=== PATIENT | female | born 1985 | race Caucasian/White ===

== ENCOUNTER → 2017-07-04 | Outpatient (CLI) | payer OTHER ==
[~2017-07-04] MED LIST: IBUP600 PO; Norco 5-325 Ta1 EACH PO; PREN-16 PO; SERT25 PO; TRAM50 PO
== END ==
LOC: LAB 16:55
DX: Z11.3 Encounter for screening for infections with a predominantly sexual mode of transmission (principal)
CPT/HCPCS: 87070; 87205

== ENCOUNTER → 2019-01-14 | Outpatient (CLI) | payer OTHER ==
[~2019-01-14] MED LIST changes: +ACYC800 PO; +FERSU300 PO; +IBUP800 PO; +Prenatal Compl1 EACH PO; +Zantac150 MG
[2019-01-15 22:06] LABS: CHLAMYDIA TRACHOMATIS, NAA Negative (Negative); NEISSERIA GONORRHOEAE, NAA Negative (Negative)
== END ==
LOC: LAB 12:35 → LAB SHORT 12:35
PROVIDERS: Obstetrics & Gynecology
DX: Z34.83 Encounter for supervision of other normal pregnancy, third trimester (principal); Z3A.36 36 weeks gestation of pregnancy
CPT/HCPCS: 87081; 87491; 87591; 87653

== ENCOUNTER 2019-02-02 05:59 | Inpatient (IN) | payer OTHER ==
[~2019-02-02] VITALS: Ht 162.6 cm; Wt 90.4 kg
[~2019-02-02 05:59] MED LIST changes: -ACYC800 PO; -FERSU300 PO; -IBUP800 PO; -Prenatal Compl1 EACH PO; -Zantac150 MG
[2019-02-02] MEDS ORDERED: Prenatal Compl1 EACH PO (06:20)
[2019-02-02] MEDS ORDERED: Zantac150 MG (06:21)
[2019-02-02] MEDS ORDERED: FERSU300 PO (06:21)
[2019-02-02] MEDS ORDERED: ACYC800 PO (06:21)
[2019-02-02 06:41] LABS: BASOPHILS ABSOLUTE AUTO 0.03 K/mm3 (0.00-0.23); BASOPHILS PERCENT AUTO 0 % (0-2); EOSINOPHILS ABSOLUTE AUTO 0.27 K/mm3 (0.00-0.68); EOSINOPHILS PERCENT AUTO 2 % (0-6); Hematocrit 34.9 % (33.0-51.0); Hemoglobin 11.3 g/dL (11.5-16.0); IMMATURE GRAN ABSOLUTE AUTO 0.22 K/mm3 (0.00-0.10); IMMATURE GRAN PERCENT AUTO 1 % (0-1); LYMPHOCYTES ABSOLUTE AUTO 2.49 K/mm3 (0.84-5.20); LYMPHOCYTES PERCENT AUTO 15 % (21-46); MONOCYTES ABSOLUTE AUTO 1.27 K/mm3 (0.16-1.47); MONOCYTES PERCENT AUTO 8 % (4-13); Mean Corpuscular HGB Conc 32.4 g/dL (31.5-36.5); Mean Corpuscular Volume 96 fL (80-100); NEUTROPHILS ABSOLUTE AUTO 12.23 K/mm3 (1.96-9.15); NEUTROPHILS PERCENT AUTO 74 % (41-73); Platelet Count 245 K/mm3 (150-400); RDW Coefficient Variation 13.7 % (11.7-14.2); RDW Standard Deviation 48.4 fL (35.1-46.3); Red Blood Cell Count 3.65 M/mm3 (3.80-5.20); White Blood Cell Count 16.51 K/mm3 (4.00-11.30)
[2019-02-03 06:05] LABS: BASOPHILS ABSOLUTE AUTO 0.04 K/mm3 (0.00-0.23); BASOPHILS PERCENT AUTO 0 % (0-2); EOSINOPHILS ABSOLUTE AUTO 0.07 K/mm3 (0.00-0.68); EOSINOPHILS PERCENT AUTO 0 % (0-6); Hemoglobin 10.2 g/dL (11.5-16.0); IMMATURE GRAN ABSOLUTE AUTO 0.19 K/mm3 (0.00-0.10); IMMATURE GRAN PERCENT AUTO 1 % (0-1); LYMPHOCYTES ABSOLUTE AUTO 2.26 K/mm3 (0.84-5.20); LYMPHOCYTES PERCENT AUTO 10 % (21-46); MONOCYTES ABSOLUTE AUTO 1.26 K/mm3 (0.16-1.47); MONOCYTES PERCENT AUTO 6 % (4-13); Mean Corpuscular HGB 30.4 pg (26.0-34.0); Mean Corpuscular HGB Conc 31.9 g/dL (31.5-36.5); Mean Corpuscular Volume 96 fL (80-100); Mean Platelet Volume 10.7 fL (9.1-12.4); NEUTROPHILS ABSOLUTE AUTO 19.04 K/mm3 (1.96-9.15); NEUTROPHILS PERCENT AUTO 83 % (41-73); Platelet Count 208 K/mm3 (150-400); RDW Standard Deviation 47.8 fL (35.1-46.3); Red Blood Cell Count 3.35 M/mm3 (3.80-5.20); White Blood Cell Count 22.86 K/mm3 (4.00-11.30)
[2019-02-03] MEDS ORDERED: IBUP800 PO (07:30)
--- NOTE | 2019-02-03 07:55 | NUR ---
ASSUMED CARE PT SLEEPING SOUNDLY AT THIS TIME AND BABY ASLEEP IN CRIB. WILL ASSESS WHEN THEY WAKE UP.
--- NOTE | 2019-02-03 18:20 | NUR ---
BOTTLE FEEDING MOM BOTTLE FED HER LAST BABY AND IS GOING TO BOTTLE FEED THIS BABY WELL. DISCUSSED PACE BOTTLE FEEDING. WITH MOM AND CURRENT SIZE OF BABY'S STOMACHE.
--- NOTE | 2019-02-04 11:10 | NUR ---
DISCHARGE HOME WITH BABY AND S.O.
== END 2019-02-04 11:10 | disposition home or self-care (01) | DRG 807 ==
LOC: OBS 05:59 → BC 06:00 → OBS 06:05 → BC 06:06
PROVIDERS: ADMIT Obstetrics & Gynecology
PROC: 10E0XZZ Delivery of Products of Conception, External Approach (ICD-10-PCS; principal; 2019-02-02)
PROC: 3E033VJ Introduction of Other Hormone into Peripheral Vein, Percutaneous Approach (ICD-10-PCS; 2019-02-02)
PROC: 10907ZC Drainage of Amniotic Fluid, Therapeutic from Products of Conception, Via Natural or Artificial Opening (ICD-10-PCS; 2019-02-02)
PROC: 3E0R3BZ Introduction of Anesthetic Agent into Spinal Canal, Percutaneous Approach (ICD-10-PCS; 2019-02-02)
DX: O80 Encounter for full-term uncomplicated delivery (principal); Z37.0 Single live birth; Z3A.39 39 weeks gestation of pregnancy; Z87.891 Personal history of nicotine dependence
CPT/HCPCS: 36415; 51702; 85025; 90471; 90707; J1885; J2001; J2210; J2405; J2590; J3010; J7120

== ENCOUNTER 2020-05-07 00:59 | Emergency (ER) | payer OTHER ==
[~2020-05-07] VITALS: Ht 160 cm; Wt 96.2 kg
[~2020-05-07 00:59] MED LIST changes: +ACYC800 PO; +FERSU300 PO; +IBUP800 PO; +Prenatal Compl1 EACH PO; +Zantac150 MG
== END 2020-05-07 02:32 | disposition home or self-care (01) ==
LOC: ER 00:59
DX: T19.2XXA Foreign body in vulva and vagina, initial encounter (principal); Z88.1 Allergy status to other antibiotic agents; Z87.891 Personal history of nicotine dependence
CPT/HCPCS: 99282-25

== ENCOUNTER 2020-05-09 18:34 | Emergency (ER) | payer OTHER ==
[~2020-05-09] VITALS: Ht 162.6 cm; Wt 96.2 kg
== END 2020-05-09 21:59 | disposition left against medical advice (07) ==
LOC: ER 18:34
DX: N93.9 Abnormal uterine and vaginal bleeding, unspecified (principal); Z53.21 Procedure and treatment not carried out due to patient leaving prior to being seen by health care provider
CPT/HCPCS: 81000; 81025

== ENCOUNTER → 2024-02-16 | Outpatient (CLI) | payer OTHER | LOC: LAB SHORT 17:56 → LAB 17:56 | DX: R30.0 Dysuria (principal) | CPT/HCPCS: 87086 ==

== ENCOUNTER → 2024-06-08 | Outpatient (CLI) | payer OTHER ==
[2024-06-16 12:13] LABS: HPV HIGH RISK BY TMA Not Detected; HPV SOURCE Cervical
== END | disposition home or self-care (01) ==
LOC: LAB 17:21 → LAB SHORT 17:21
PROVIDERS: Family Medicine
DX: Z12.4 Encounter for screening for malignant neoplasm of cervix (principal)
CPT/HCPCS: 87624; G0123